=== PATIENT | female | born 1980 | race Two or more races ===

== ENCOUNTER 2017-03-27 03:17 | Emergency (ER) | payer MEDICAID ==
[~2017-03-27] VITALS: Ht 165.1 cm; Wt 81.6 kg
[2017-03-27 04:39] LABS: Basophils # (auto) 0 uL; Basophils % (auto) 0.1 % (0.0-2.0); Eosinophils # (auto) 0.2 uL; Eosinophils % (auto) 1.6 % (0.0-7.0); Hematocrit 43.6 % (36.0-46.0); Hemoglobin 14.7 g/dL (12.2-16.2); Lymphocytes # (auto) 2.3 uL; Lymphocytes % (auto) 20.9 % (10.0-50.0); Mean Corpuscular Hgb Conc. 33.8 g/dL (32.0-36.0); Mean Corpuscular Volume 88.6 fL (80.0-100.0); Mean Platelet Volume 8.4 fL (6.9-10.8); Monocytes # (auto) 0.9 uL; Monocytes % (auto) 8.4 % (0.0-12.0); Neutrophils # (auto) 7.7 uL; Nucleated Red Blood Cells % 0.1 %; Platelet Count (auto) 243 10^3/uL (140-450); Red Cell Distribution Width 13.5 % (11.8-14.3); White Blood Cell 11.2 10^3/uL (4.4-10.8)
[2017-03-27 04:47] LABS: Albumin 3.6 g/dL (3.4-5.0); Anion Gap 7 (5-15); Aspartate Aminotransferase 14 U/L (15-37); BUN/Creatinine Ratio 22.2; Blood Urea Nitrogen 14 mg/dL (7-18); Calcium 8.3 mg/dL (8.5-10.1); Carbon Dioxide 23 mmol/L (21-32); Chloride 108 mmol/L (98-107); GFR African American 138 mL/min; GFR Non-African American 114 mL/min; Glucose 85 mg/dL (74-106); Magnesium 2.1 mg/dL (1.6-2.6); Potassium 4.1 mmol/L (3.5-5.1); Sodium 138 mmol/L (136-145)
[2017-03-27 04:52] LABS: Alkaline Phosphatase 62 U/L (45-117); Bilirubin, Total 0.7 mg/dL (0.2-1.0); Total Protein 7.4 g/dL (6.4-8.2)
[2017-03-27 05:08] LABS: Urine Bilirubin Negative (Negative); Urine Blood Negative /uL (Negative); Urine Color Yellow (Yellow); Urine Glucose Normal (Normal); Urine Ketone Negative (Negative); Urine Mucus FEW (None Seen); Urine Nitrite Negative (Negative); Urine RBC <1 /hpf (0 - 4); Urine Squamous Epithelial Cell FEW /hpf (<5); Urine Urobilinogen Normal (Negative)
[2017-03-27 09:57] VITALS: BP 106/64
[2017-03-27] MEDS: HYDROcodone-ACET 5/325MG TAB PO ONE (10:08)
== END 2017-03-27 10:36 | disposition home or self-care (01) ==
LOC: ER 03:19
DX: M75.51 Bursitis of right shoulder (principal); M94.0 Chondrocostal junction syndrome [Tietze]; R06.02 Shortness of breath; Z90.49 Acquired absence of other specified parts of digestive tract
CPT/HCPCS: 36415; 71010; 80053; 81001; 83735; 84484; 84702; 85025; 93005

== ENCOUNTER 2021-04-02 20:54 | Emergency (ER) | payer MEDICAID ==
[~2021-04-02] VITALS: Ht 165.1 cm; Wt 90.7 kg
[2021-04-03 05:56] VITALS: BP 115/56
== END 2021-04-03 02:05 | disposition home or self-care (01) ==
LOC: ER 20:54
DX: R51.9 Headache, unspecified (principal); R50.9 Fever, unspecified; R53.83 Other fatigue; Z90.49 Acquired absence of other specified parts of digestive tract; Z20.822 Contact with and (suspected) exposure to COVID-19
CPT/HCPCS: 36415; 87426